=== PATIENT | male | born 1965 | race Caucasian/White ===

== ENCOUNTER 2021-05-21 12:17 | Emergency (ER) | payer OTHER ==
[~2021-05-21] VITALS: Ht 180.3 cm; Wt 71.7 kg
--- NOTE | 2021-05-21 12:51 | NUR ---
PT C/O GENERALIZED ABD PAIN 2/10 AND GENERAL WEAKNESS. PT STATES ABD PAIN HAS BEEN CONSTANT FOR THE LAST WEEK. PRIOR TO THIS THE PAIN WAS INTERMITTANT X 2 MONTHS. PT HAS ALSO HAD UNINTENTIONAL WEIGHT LOSS > 10 LBS THE LAST FEW MONTHS. PT CAME TO ED AT REQUEST OF PRIMARY CARE DUE TO ANEMIC LABS AND LOW WBC. 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 HE FEELS THAT THEY HAVE DARKENED.
--- NOTE | 2021-05-21 12:53 | NUR ---
REVIEW OF CHART, ASSUME CARE OF PT AT THIS TIME.
[2021-05-21 13:36] LABS: BASOPHILS % (AUTO) 0 % (0-1); EOSINOPHILS % (AUTO) 2 % (1-7); LYMPHOCYTES % (AUTO) 25 % (22-44); MEAN CORPUSCULAR HEMOGLOBIN 39.7 pg (27.5-34.5); MEAN CORPUSCULAR HGB CONC 34.7 g/dL (33.2-36.2); MEAN PLATELET VOLUME 6.9 fL (7.4-10.4); MONOCYTES % (AUTO) 7 % (2-9); NEUTROPHILS % (AUTO) 66 % (42-75); PLATELET COUNT 235 x10^3/uL (130-400); RED BLOOD COUNT 2.59 x10^6/uL (4.38-5.82)
--- NOTE | 2021-05-21 13:41 | NUR ---
LABS DRAWN, PCXR AND EKG COMPLETED. LABORATORY MILLER IN TO START IV AND NS BOLUS. PT STATES NAUSEA VERY LITTLE AND DECLINES ZOFRAN AT THIS TIME. PT UPDATED ON POC AND TIMING OF PROCEDURES. URINAL PROVIDED, CALL LIGHT WITHIN REACH.
[2021-05-21 13:48] LABS: ALANINE AMINOTRANSFERASE 32 U/L (12-78); ALBUMIN 3.5 g/dL (3.4-5.0); ANION GAP 6 mmol/L (5-15); CALCIUM 8.4 mg/dL (8.5-10.1); CHLORIDE 108 mmol/L (98-107); CREATININE 0.85 mg/dL (0.7-1.3)
[2021-05-21 13:50] LABS: ALKALINE PHOSPHATASE 49 U/L (45-117); TOTAL PROTEIN 6.3 g/dL (6.4-8.2)
[2021-05-21] MEDS ORDERED: SODIUM CHLORIDE FLUSH 10ML SYR IVF ONE (14:00)
[2021-05-21] MEDS ORDERED: ONDANSETRON 2MG/ML, 2ML IVPush ONE (14:00)
[2021-05-21] MEDS ORDERED: SODIUM CHLORIDE 0.9% 1,000ML IVBOLUS ONE (14:00)
[2021-05-21 14:17] LABS: ANISOCYTOSIS 1+
[2021-05-21 14:18] LABS: MICROCYTOSIS 1+; OVALOCYTES 1+; TEAR DROPS 1+
[2021-05-21 14:19] LABS: <PLATELET ESTIMATE> ADEQUATE; <PLT MORPHOLOGY> NORMAL PLT MORPH
--- NOTE | 2021-05-21 14:57 | NUR ---
PT IN CT.
--- NOTE | 2021-05-21 15:21 | NUR ---
URINE COLLECTED/SENT TO LAB.
[2021-05-21] MEDS ORDERED: OMNIPAQUE 350 MG/ML, 100ML BOTTLE ONE (15:32)
[2021-05-21 15:50] LABS: MICROSCOPIC NOT IND
--- NOTE | 2021-05-21 16:02 | NUR ---
ALL RESULTS BACK, PT FOR RECHECK.
[2021-05-21 16:13] VITALS: BP 98/59
== END 2021-05-21 17:28 | disposition home or self-care (01) ==
LOC: ED 14:28
DX: D64.9 Anemia, unspecified (principal); R94.31 Abnormal electrocardiogram [ECG] [EKG]
CPT/HCPCS: 36415; 71045; 74177; 80053; 81003; 83605; 83690; 84443; 85025; 93005; 96360; 96361; 99285; J7030; Q9967